=== PATIENT | male | born 1980 | race American Indian/Alaskan Native ===

== ENCOUNTER 2019-02-20 15:35 | Emergency (ER) | payer SELFPAY ==
--- NOTE | 2019-02-20 15:44 | Emergency Department Report ---
Blank Doc - Documentation Documentation: 38-year-old male that presents with dizziness. This initial assessment/diagnostic orders/clinical plan/treatment(s) is/are subject to change based on patient's health status, clinical progression and re- assessment by fellow clinical providers in the ED. Further treatment and workup at subsequent clinical providers discretion. Patient/guardians urged not to elope from the ED as their condition may be serious if not clinically assessed and managed. Initial orders include: 1- Patient sent to [facility] for further evaluation and treatment 2- labs. 3- orthostatic vitals
[2019-02-20 15:46] VITALS: BP 173/101
[2019-02-20 16:01] LABS: Basophils # (Auto) 0.1 K/mm3 (0.0-0.1); Basophils % (Auto) 0.4 % (0.0-1.8); Eosinophils # (Auto) 0.1 K/mm3 (0.0-0.4); Eosinophils % (Auto) 0.7 % (0.0-4.3); Hematocrit 48.5 % (35.5-45.6); Hemoglobin 16.4 gm/dl (11.8-15.2); Lymphocytes # (Auto) 2.9 K/mm3 (1.2-5.4); Lymphocytes % (Auto) 18.8 % (13.4-35.0); Mean Corpuscular HGB Conc 34 % (32-34); Mean Corpuscular Volume 97 fl (84-94); Monocytes # (Auto) 1.1 K/mm3 (0.0-0.8); Monocytes % (Auto) 7.2 % (0.0-7.3); Platelet Count 238 K/mm3 (140-440); Red Blood Count 4.99 M/mm3 (3.65-5.03); Red Cell Distribution Width 14.1 % (13.2-15.2)
[2019-02-20 16:32] LABS: BUN/Creatinine Ratio 12; Blood Urea Nitrogen 13 mg/dL (9-20); Calcium 9.3 mg/dL (8.4-10.2); Hemolysis Index 29
[2019-02-20 18:23] LABS: Amorphous Crystals,Urine Few; Bacteria,Urine 1+ /HPF (Negative); Bilirubin,Urine NEG (Negative); Blood,Urine NEG (Negative); Color,Urine Amber (Yellow); Mucus,Urine 3+ /HPF; Protein,Urine <15 mg/dL mg/dL (Negative)
[2019-02-20] MEDS ORDERED: ZESTRIL PO ONE (18:57)
[2019-02-20] MEDS ORDERED: IBUPROFEN PO ONE (18:57)
--- NOTE | 2019-02-20 18:58 | Emergency Department Report ---
HPI - General Chief Complaint: Dizziness Time Seen by Provider: 02/20/19 15:43 ED Past Medical Hx - Past Medical History Previous Medical History?: Yes Hx Hypertension: Yes (NEVER TOLD HE NEEDS MEDS) - Surgical History Past Surgical History?: No - Family History Family history: other (DAD HTN; MOM JUST HAD BMT) - Social History Smoking Status: Current Every Day Smoker Substance Use Type: Alcohol - Medications Home Medications: Home Medications Medication Instructions Recorded Confirmed Last Taken Type Lisinopril [Zestril TAB] 10 mg PO QDAY #30 tablet 02/20/19 Unknown Rx ED Review of Systems ROS: Stated complaint: LIGHT HEADED/SOB Other details as noted in HPI Comment: All other systems reviewed and negative Physical Exam - Physical Exam Vital Signs: Vital Signs 02/20/19 15:44 Temperature 97.8 F Pulse Rate 103 H Respiratory 16 Rate Blood Pressure 173/101 [Left] O2 Sat by Pulse 98 Oximetry Physical Exam: ALERT ORIENTED NO FOCAL DEFICIT S1S2 LUNGS CTA ABD SNT NO EDEMA OR JVD TAKING PO AMBULATORY ED Course Vital Signs 02/20/19 15:44 Temperature 97.8 F Pulse Rate 103 H Respiratory 16 Rate Blood Pressure 173/101 [Left] O2 Sat by Pulse 98 Oximetry ED Medical Decision Making - Lab Data Result diagrams: 02/20/19 15:52 02/20/19 15:52 - Medical Decision Making Labs 02/20/19 02/20/19 02/20/19 15:52 15:52 17:39 WBC 15.2 H RBC 4.99 Hgb 16.4 H Hct 48.5 H MCV 97 H MCH 33 H MCHC 34 RDW 14.1 Plt Count 238 Lymph % (Auto) 18.8 Hall % (Auto) 7.2 Eos % (Auto) 0.7 Baso % (Auto) 0.4 Lymph # 2.9 Hall # 1.1 H Eos # 0.1 Baso # 0.1 Seg Neutrophils % 72.9 H Seg Neutrophils # 11.1 H Sodium 139 Potassium 3.9 Chloride 101.8 Carbon Dioxide 23 Anion Gap 18 BUN 13 Creatinine 1.1 Estimated GFR > 60 BUN/Creatinine Ratio 12 Glucose 122 H Calcium 9.3 Troponin T Urine Color Terese Urine Turbidity Turbid Urine pH 5.0 Ur Specific [place] 1.031 H Urine Protein <15 mg/dl Urine Glucose (UA) Neg Urine Ketones Neg Urine Blood Neg Urine Nitrite Neg Urine Bilirubin Neg Urine Urobilinogen 4.0 Ur Leukocyte Esterase Tr Urine WBC (Auto) 9.0 H Urine RBC (Auto) 2.0 U Epithel Cells (Auto) < 1.0 Urine Bacteria (Auto) 1+ Amorphous Crystals Few Urine Mucus 3+ 02/20/19 17:47 WBC RBC Hgb Hct MCV MCH MCHC RDW Plt Count Lymph % (Auto) Hall % (Auto) Eos % (Auto) Baso % (Auto) Lymph # Hall # Eos # Baso # Seg Neutrophils % Seg Neutrophils # Sodium Potassium Chloride Carbon Dioxide Anion Gap BUN Creatinine Estimated GFR BUN/Creatinine Ratio Glucose Calcium Troponin T < 0.010 Urine Color Urine Turbidity Urine pH Ur Specific [place] Urine Protein Urine Glucose (UA) Urine Ketones Urine Blood Urine Nitrite Urine Bilirubin Urine Urobilinogen Ur Leukocyte Esterase Urine WBC (Auto) Urine RBC (Auto) U Epithel Cells (Auto) Urine Bacteria (Auto) Amorphous Crystals Urine Mucus Vital Signs 02/20/19 15:44 Temperature 97.8 F Pulse Rate 103 H Respiratory 16 Rate Blood Pressure 173/101 [Left] O2 Sat by Pulse 98 Oximetry VS- 155/100, HR 90, RR 18, SAT 100, TEMP 97.8 Critical care attestation.: If time is entered above; I have spent that time in minutes in the direct care of this critically ill patient, excluding procedure time. ED Disposition Clinical Impression: Elevated blood pressure reading Disposition: - TO HOME OR SELFCARE Is pt being admited?: No Does the pt Need Aspirin: No Condition: Stable Instructions: DASH Eating Plan (ED) Additional Instructions: LOW SALT DIET AVOID FATTY FOODS AVOID FAST FOODS HYDRATE WELL WITH WATER MED ORDERED TODAY FOLLOW UP WITH PCP REFERRAL BELOW Referrals: MICHAEL KOEHLER MD [Staff Physician] - 3-5 Days [facility] [Outside] - 3-5 Days Time of Disposition: 19:06
== END 2019-02-20 19:20 | disposition home or self-care (01) ==
LOC: ED 15:35
DX: I10 Essential (primary) hypertension (principal); F17.200 Nicotine dependence, unspecified, uncomplicated; Z79.899 Other long term (current) drug therapy
CPT/HCPCS: 36415; 80048; 81001; 84484; 85025; 87086; 93005; 93010

== ENCOUNTER 2020-07-23 05:42 | Emergency (ER) | payer SELFPAY ==
[2020-07-23] MEDS ORDERED: ACETAMINOPHEN 500 MG TAB PO ONE (06:04)
[2020-07-23 06:05] VITALS: BP 135/93
[2020-07-23] MEDS ORDERED: IBUPROFEN 600 MG TAB PO ONE (06:05)
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
== END 2020-07-23 06:45 | disposition home or self-care (01) ==
LOC: ED 05:42
DX: S29.012A Strain of muscle and tendon of back wall of thorax, initial encounter (principal); M62.830 Muscle spasm of back; I10 Essential (primary) hypertension; F17.200 Nicotine dependence, unspecified, uncomplicated; Z79.899 Other long term (current) drug therapy; X58.XXXA Exposure to other specified factors, initial encounter; Y93.89 Activity, other specified; Y92.89 Other specified places as the place of occurrence of the external cause; Y99.8 Other external cause status
CPT/HCPCS: 72072; 99283

== ENCOUNTER 2021-02-24 17:37 | Emergency (ER) | payer SELFPAY ==
--- NOTE | 2021-02-24 18:04 | Emergency Department Report ---
ED General Adult HPI - General Chief complaint: Extremity Injury, Lower Stated complaint: R ANKLE SWELLING Time Seen by Provider: 02/24/21 17:54 Source: patient Mode of arrival: Ambulatory Limitations: No Limitations - History of Present Illness Initial comments: 40-year-old -[place] male patient presents with complaints of right ankle swelling x3 days. He states the swelling began after he wore a boot that was too tight at work and he thinks he may have twisted his ankle. He denies any numbness/tingling/weakness in his ankle or foot or difficulty with movement. He states he is limping somewhat from the pain. He rates his pain as a 4/10 in severity. Patient states that he was sent to the ED to get medical clearance to return to work. Severity scale (0 -10): 4 - Related Data Previous Rx's Medication Instructions Recorded Last Taken Type lisinopriL [Zestril TAB] 10 mg PO QDAY #30 tablet 02/20/19 Unknown Rx Ibuprofen [Motrin] 800 mg PO Q8HR PRN #30 tablet 07/23/20 Unknown Rx methOCARBAMOL [Robaxin TAB] 750 mg PO Q8H PRN #24 tablet 07/23/20 Unknown Rx Naproxen 500 mg PO BID PRN #20 tablet 02/24/21 Unknown Rx Allergies Allergy/AdvReac Type Severity Reaction Status Date / Time No Known Allergies Allergy Verified 02/24/21 17:52 ED Review of Systems ROS: Stated complaint: R ANKLE SWELLING Other details as noted in HPI Constitutional: denies: fever, malaise Musculoskeletal: joint swelling, arthralgia Skin: denies: change in color Neurological: abnormal gait. denies: numbness, paresthesias ED Past Medical Hx - Past Medical History Previous Medical History?: No Hx Hypertension: Yes (NEVER TOLD HE NEEDS MEDS) - Surgical History Past Surgical History?: No - Social History Smoking Status: Current Every Day Smoker - Medications Home Medications: Home Medications Medication Instructions Recorded Confirmed Last Taken Type lisinopriL [Zestril TAB] 10 mg PO QDAY #30 tablet 02/20/19 Unknown Rx Ibuprofen [Motrin] 800 mg PO Q8HR PRN #30 tablet 07/23/20 Unknown Rx methOCARBAMOL [Robaxin TAB] 750 mg PO Q8H PRN #24 tablet 07/23/20 Unknown Rx Naproxen 500 mg PO BID PRN #20 tablet 02/24/21 Unknown Rx ED Physical Exam - General Limitations: No Limitations General appearance: alert, in no apparent distress - Head Head exam: Present: atraumatic, normocephalic - Eye Eye exam: Present: normal appearance - Respiratory Respiratory exam: Absent: respiratory distress - Cardiovascular Cardiovascular Exam: Present: regular rate - Extremities Exam Extremities exam: Present: full ROM - Expanded Lower Extremity Exam Right Ankle exam: Present: tenderness (Mild; no bony tenderness noted), swelling (Mild lateral swelling noted). Absent: full ROM, abrasion, laceration, ecchymosis, deformity, crepidus, dislocation Neuro vascular tendon exam: Present: no vascular compromise. Absent: motor deficit, sensory deficit, pallor - Neurological Exam Neurological exam: Present: alert, oriented X3 - Psychiatric Psychiatric exam: Present: normal affect, normal mood - Skin Skin exam: Present: warm, dry, intact, normal color. Absent: rash ED Course Vital Signs 02/24/21 17:48 Temperature 98.9 F Pulse Rate 89 Respiratory 18 Rate Blood Pressure 176/103 O2 Sat by Pulse 97 Oximetry ED Medical Decision Making - Medical Decision Making 40-year-old -[place] male patient presents with complaints of right ankle swelling x3 days. He states the swelling began after he wore a boot that was too tight at work and he thinks he may have twisted his ankle. He denies any numbness/tingling/weakness in his ankle or foot or difficulty with movement. He states he is limping somewhat from the pain. He rates his pain as a 4/10 in severity. Patient states that he was sent to the ED to get medical clearance to return to work. Mild swelling of the right lateral ankle noted on exam without any significant bony tenderness or skin changes noted. Patient declines x-ray imaging. He denies history of gout. Will treat for ankle sprain with rice method and NSAIDs. Recommend follow-up with PCP in 3 to 5 days. He is well-appearing and stable for discharge home. Strict return precautions were discussed in detail with patient who verbalized understanding. Patient to also follow-up with primary care concerning his blood pressure-he does admit to history of this, however he is currently not on medication. He denies any neuro symptoms, headache, dizziness, chest pain, or shortness of breath. Critical care attestation.: If time is entered above; I have spent that time in minutes in the direct care of this critically ill patient, excluding procedure time. ED Disposition Clinical Impression: Right ankle swelling, Elevated blood pressure reading Disposition: 01 HOME / SELF CARE / HOMELESS Is pt being admited?: No Condition: Stable Instructions: Ankle Sprain, Managing Your Hypertension, Hypertension, Adult Prescriptions: Naproxen 500 mg PO BID PRN #20 tablet PRN Reason: pain Referrals: [facility] [Provider Group] - 3-5 Days Forms: Work/School Release Form(ED)
[2021-02-24 18:50] VITALS: BP 145/94
== END 2021-02-24 19:05 | disposition home or self-care (01) ==
LOC: ED 17:37
DX: R22.41 Localized swelling, mass and lump, right lower limb (principal); R03.0 Elevated blood-pressure reading, without diagnosis of hypertension; F17.200 Nicotine dependence, unspecified, uncomplicated; Z79.899 Other long term (current) drug therapy
CPT/HCPCS: 99282